=== PATIENT | female | born 1960 | race Caucasian/White ===

== ENCOUNTER → 2024-02-03 07:18 | Outpatient (REF) | payer MEDICARE, OTHER, SELFPAY ==
[2024-02-03 07:35] VITALS: BP 154/73; BP_SYST 82
[2024-02-03 08:45] VITALS: BP 154/73
== END ==
LOC: RADI 07:18
PROVIDERS: ATTENDING PHYSICIAN Internal Medicine Endocrinology, Diabetes & Metabolism; FAMILY PHYSICIAN Internal Medicine
DX: E04.2 Nontoxic multinodular goiter (principal)
CPT/HCPCS: 88173; 10005; 10006